=== PATIENT | female | born 1980 | race Caucasian/White ===

== ENCOUNTER 2016-12-01 20:24 | Emergency (ER) | payer OTHER ==
[2016-12-01] MEDS ORDERED: ALBU6.7H INH (21:10)
--- NOTE | 2016-12-01 21:13 | PD ---
HPI Chief Complaint 19 week 'uterine contractions' 2 weeks Date Seen: Dec 01, 2016 Time Seen: 21:00 Travel History International Travel<30 Days: No Contact w/Intl Traveler<30Days: No Known Affected Area: No History of Present Illness HPI Pt is a 36 yo G3 2001 who presents with uterine contractions. EDC is 04-27-2016, making her 19 weeks today. Pt receives care with Dr Blanca Austin Pain and tightening have been intermittent past 2 weeks, but more frequent today. She reports 5 episodes 'before noon'. No fevers or chills. Pt states she called her OB office and was directed to come here. She reports vaginal irritation, worse after sexual intercourse. Weeks Gestation: 19 Para: 2 : 3 History Past Medical History Narrative Medical Asthma, controlled with PRN Albuterol inhaler. Obstetric History Obstetric History 2 previous term uncomplicated pregnancies, vaginal deliveries. Past Surgical History Narrative Surgical Foot surgery at age 12yo. Family History Family History: Negative Social History Alcohol Use: No Tobacco Use: No Substance Abuse: No Allergies-Medications (Allergen,Severity, Reaction): Coded Allergies: Penicillins (Verified Allergy, Unknown, 12/01/16) Sulfa (Sulfonamide Antibiotics) (Verified Allergy, Unknown, 12/01/16) acetaminophen (Verified Allergy, Unknown, 12/01/16) erythromycin base (Verified Allergy, Unknown, 12/01/16) hydrocodone (Verified Allergy, Unknown, 12/01/16) Home Meds Active Scripts Albuterol 6.7 GM Inh (Proventil Hfa 6.7 GM Inh) 90 Mcg/Act Aer, 2 PUFF INH Q6H Y for SHORTNESS OF BREATH, #1 INHALER 0 Refills Prov:Greg Saavedra MD 12/01/16 Review of Systems Except as stated in HPI: all other systems reviewed are Neg Physical Exam Narrative GENERAL: Well-nourished, well-developed patient. SKIN: Warm and dry. HEAD: Normocephalic and atraumatic. EYES: No scleral icterus. No injection or drainage. ENT: No nasal drainage noted. Mucous membranes pink. Airway patent. NECK: Supple, trachea midline. No JVD. CARDIOVASCULAR: Regular rate and rhythm without murmurs, gallops, or rubs. RESPIRATORY: Breath sounds equal bilaterally. No accessory muscle use. BREASTS: Bilateral exam showed no masses , no retractions, no nipple discharge. ABDOMEN/GI: Abdomen soft, non-tender, bowel sounds present, no rebound, no guarding Gravid to [20] weeks size, uterus soft Fundal Height: [-] GENITOURINARY: External Genitalia: intact and normal in appearance BUS glands: [-] Cervix: [firm] Dilatation: [closed] Effacement: [uneffaced] Station: [high] Presentation: [-] Membranes: [intact] Uterine Contractions: [-] FHT's: Category: [-] Baseline: [140s] Reactive: [-] Variability: [-] Decels: [-] EXTREMITIES: No cyanosis or edema. BACK: Nontender without obvious deformity. No CVA tenderness. NEUROLOGICAL: Awake and alert. Motor and sensory grossly within normal limits. Five out of 5 muscle strength in all muscle groups. Normal speech. Data Data Vital Signs Reviewed: Yes [facility] Medical Record Reviewed: Yes Interpretation(s) UA clean Plan 19 weeks . Presents with 2 weeks h/o 'uterine contractions', more frequent today. Cervix is closed. Plan UA. UA clean, SG 1,020. UTI ruled out Pt reports improvement. No contractions noted. Diagnosis Diagnosis: Primary Impression: with 19 completed weeks gestation Additional Impressions: Pelvic pain affecting Dehydration Disposition: 01 DISCHARGE HOME Scripts Albuterol 6.7 GM Inh (Proventil Hfa 6.7 GM Inh) 90 Mcg/Act Aer 2 PUFF INH Q6H Y for SHORTNESS OF BREATH, #1 INHALER 0 Refills Prov: Greg Saavedra MD 12/01/16 Greg Saavedra MD Dec 01, 2016 21:13
== END 2016-12-02 10:18 | disposition home or self-care (01) ==
LOC: HOBED 20:24
DX: O26.892 Other specified pregnancy related conditions, second trimester (principal); N85.8 Other specified noninflammatory disorders of uterus; Z3A.19 19 weeks gestation of pregnancy
CPT/HCPCS: 99283